=== PATIENT | female | born 1970 ===

== ENCOUNTER 2018-01-27 21:32 | Emergency (ER) | payer OTHER ==
[2018-01-27] MEDS ORDERED: Sodium Chloride 0.9% 1,000 ML IV STA (22:12)
[2018-01-27 22:55] LABS: PROTHROMBIN TIME 11.4 Seconds (9.8-13.1)
[2018-01-27 22:57] LABS: PARTIAL THROMBOPLASTIN TIME 32.1 Seconds (25.6-37.1)
[2018-01-27 23:00] LABS: BASO % 0.7 % (0.0-2.0); EOS # 0.1 K/uL (0.0-0.7); EOS % 1.6 % (0.0-4.0); HEMOGLOBIN 12.8 g/dL (12.0-16.0); LYMPH # 1.5 K/uL (1.0-4.3); LYMPH % 22.3 % (20.0-40.0); MEAN CELL VOLUME 93.5 fl (81.0-99.0); MEAN CORPUSCULAR HGB CONC 34.2 g/dL (33.0-37.0); MEAN PLATELET VOLUME 8.3 fl (7.2-11.7); MONO # 0.5 K/uL (0.0-0.8); MONO % 7.9 % (0.0-10.0); NEUT # 4.6 K/uL (1.8-7.0); NEUT % 67.5 % (50.0-75.0); RED CELL DISTRIBUTION WIDTH 12.6 % (11.5-14.5); WHITE BLOOD COUNT 6.8 K/uL (4.8-10.8)
[2018-01-27 23:03] LABS: ALB/GLOB RATIO 1.3 (1.0-2.1); ALBUMIN 4.1 g/dL (3.5-5.0); ALT/SGPT 22 U/L (9-52); AST/SGOT 26 U/L (14-36); BLOOD UREA NITROGEN 15 mg/dl (7-17); CALCIUM 8.8 mg/dL (8.4-10.2); GFR NON-AFRICAN AMERICAN > 60
--- NOTE | 2018-01-27 23:47 | ED PDOC ---
HPI: Headache Time Seen by Provider: 01/27/18 21:52 Chief Complaint (Nursing): Headache Chief Complaint (Provider): Headache History Per: Patient History/Exam Limitations: no limitations Onset/Duration Of Symptoms: Days (x2), Gradual, Worse Since Current Symptoms Are (Timing): Still Present Associated Symptoms: Photophobia, Nausea. denies: Blurred Vision, Vomiting Additional Complaint(s): 47 y/o female with a PMHx of hypercholesterolemia presents to the ED for evaluation of a diffuse headache, gradual onset 2 days ago. Patient states head ache has been more severe yesterday and today. Patient reports of taking Tylenol with minimal relief. Patient states headache is associated with photophobia and nausea. Denies vomiting, focal weakness, blurry vision, double vision and difficulty with speech or gait. In addition, patient reports that approximately two weeks age, she sustained a head injury while at work after having stood up hitting her head on a piece of furniture overhead. At that time, patient reports of swelling and a wound to the left forehead that has since resolved. Patient states at that point, she never had a headache. Additionally, patient reports she is still undergoing a cardiac work-up and no medications have been initiated yet. PMD: Dr. Navas in [place] Past Medical History Reviewed: Historical Data, Nursing Documentation, Vital Signs Vital Signs: Last Vital Signs Temp 98.2 F 01/27/18 21:42 Pulse 61 01/27/18 21:42 Resp 16 01/27/18 21:42 BP 110/71 01/27/18 21:42 Pulse Ox 99 01/27/18 21:42 - Medical History PMH: Hypercholesterolemia - Surgical History Surgical History: - Family History Family History: States: Unknown Family Hx - Social History Current smoker - smoking cessation education provided: No Ex-Smoker (has not smoked in the last 12 months): Yes (x3 weeks ) Alcohol: None - Home Medications Home Medications: Ambulatory Orders Medication Instructions Recorded Clindamycin [Clindamycin HCl] 450 mg PO TID 10 Days cap 10/18/15 Ibuprofen [Motrin] 600 mg PO TID 7 Days tab 10/18/15 Acetaminophen/Butalbital/Caf 1 tab PO TID PRN #20 tab 01/27/18 [Fioricet] Metoclopramide [Reglan] 1 tab PO TID PRN #20 tab 01/27/18 RX: Ibuprofen [Motrin Tab] 600 mg PO Q8 PRN #30 tab 01/27/18 - Allergies Allergies/Adverse Reactions: Allergies Allergy/AdvReac Type Severity Reaction Status Date / Time Penicillins Allergy RASH Verified 01/27/18 21:42 amoxicillin Allergy RASH Uncoded 10/18/15 08:33 Review of Systems ROS Statement: Except As Marked, All Systems Reviewed And Found Negative Eyes: Negative for: Vision Change (Blurry vision or double vision) Gastrointestinal: Positive for: Nausea. Negative for: Vomiting Neurological: Positive for: Headache, Other (Photophobia). Negative for: Weakness, Incoordination, Change in Speech Physical Exam - Reviewed Nursing Documentation Reviewed: Yes Vital Signs Reviewed: Yes - Physical Exam Appears: Positive for: Uncomfortable, In Acute Distress Head Exam: Positive for: ATRAUMATIC, NORMOCEPHALIC Skin: Positive for: Warm, Dry Eye Exam: Positive for: EOMI, PERRL, Conjunctival injection ENT: Negative for: Pharyngeal Erythema, Tonsillar Exudate Neck: Positive for: Painless ROM, Supple Cardiovascular/Chest: Positive for: Regular Rate, Rhythm, Chest Non Tender. Negative for: Murmur Respiratory: Positive for: Normal Breath Sounds. Negative for: Wheezing Gastrointestinal/Abdominal: Positive for: Soft. Negative for: Tenderness Back: Positive for: Normal Inspection. Negative for: Muscle Spasm Extremity: Positive for: Normal ROM. Negative for: Deformity Lymphatic: Negative for: Adenopathy Neurologic/Psych: Positive for: Alert, it risk advisor II-XII (intact), Oriented (x3), Cerebellar Tests (normal), Gait (normal). Negative for: Motor/Sensory Deficits - Laboratory Results Result Diagrams: 01/27/18 22:19 01/27/18 22:19 - ECG O2 Sat by Pulse Oximetry: 99 (RA) Pulse Ox Interpretation: Normal Medical Decision Making Medical Decision Making: Time: 2218 Impression: Headache Differentials include but not limited to tension headache, post-concussive syndrome, migraine, cerebral mass and stress Plan: -- Type and Screen -- CT Head w/o Contrast -- CMP -- Magnesium -- Phosphorous -- Thyroid Stimulating Hormone -- ED Urine -- ED Urine Dipstick -- CBC with Differentials -- PTT -- Prothrombin Time [COAG] -- Sodium Chloride 0.9% IV 999 mls/hr -- Reglan 10 mg IVP -- Toradol 15 mg IVP -- IV Insertion Time: [address] RESULTS FINDINGS: No acute intraparenchmal hemorrhage. No mass lesion. No CT evidence for acute territorial infarct. No midline shift or extra-axial collections. VENTRICULES: No hydrocephalus. ORBITS: The orbits are unremarkable. SINUSES AND MASTOIDS: The paranasal sinuses and mastoid air cells are clear. BONES: No fracture. IMPRESSION: No acute intracranial abnormality Electronically signed on Jan 27, 2018 11:14:14 PM EDT by: Samuel Sanford M.D., SHAHBAZ Certified by [facility] [facility] Trained MRI and CT Specialist Time: 2330 -- On re-evaluation, patient reports of feeling better. Patient is eager to be discharged, labs are still pending. 2350 Labs with no clinically significant abnormalities. Pt reports improvement. Stable for dc with followup PMD. Scribe Attestation: Documented by Tory Cardona, acting as a scribe for Ana Mohan MD. Provider Scribe Attestation: All medical record entries made by the Scribe were at my direction and personally dictated by me. I have reviewed the chart and agree that the record accurately reflects my personal performance of the history, physical exam, me dical decision making, and the department course for this patient. I have also personally directed, reviewed, and agree with the discharge instructions and disposition. Disposition - Clinical Impression Clinical Impression: Headache - Disposition Disposition Time: 23:45 Condition: IMPROVED Additional Instructions: PLEASE FOLLOW UP WITH YOUR PRIMARY CARE DOCTOR MONDAY FOR FURTHER EVALUATION Prescriptions: Acetaminophen/Butalbital/Caf [Fioricet] 1 tab PO TID PRN #20 tab PRN Reason: severe headache only RX: Ibuprofen [Motrin Tab] 600 mg PO Q8 PRN #30 tab PRN Reason: Headache Metoclopramide [Reglan] 1 tab PO TID PRN #20 tab PRN Reason: Nausea/Vomiting Instructions: Headache, Adult (DC) Forms: [facility] ED School/Work Excuse
[2018-01-28 00:12] VITALS: BP 98/56; PULSE 65; RESP 18; TEMP 98.6
--- NOTE | 2018-01-28 10:13 | CT ---
Date of service: 01/27/2018 PROCEDURE: CT HEAD WITHOUT CONTRAST. HISTORY: headache COMPARISON: None available. TECHNIQUE: Axial computed tomography images were obtained through the head/brain without intravenous contrast. Radiation dose: Total exam DLP = 884 mGy-cm. This CT exam was performed using one or more of the following dose reduction techniques: Automated exposure control, adjustment of the mA and/or kV according to patient size, and/or use of iterative reconstruction technique. FINDINGS: HEMORRHAGE: No intracranial hemorrhage. BRAIN: No mass effect or edema. No atrophy or chronic microvascular ischemic changes. VENTRICLES: Unremarkable. No hydrocephalus. CALVARIUM: Unremarkable. PARANASAL SINUSES: Unremarkable as visualized. No significant inflammatory changes. MASTOID AIR CELLS: Unremarkable as visualized. No inflammatory changes. OTHER FINDINGS: None. IMPRESSION: Normal CT of the Head. This agrees with preliminary report provided by the on-call radiologist.
[2018-01-28 18:35] VITALS: O2SAT 99
== END 2018-01-28 00:12 | disposition home or self-care (01) ==
LOC: H.ER 21:32
DX: R51 Headache (principal); E78.00 Pure hypercholesterolemia, unspecified; Z88.0 Allergy status to penicillin
CPT/HCPCS: 70450; 80053; 81025; 83735; 84100; 84443; 85025; 85610; 85730; 86850; 86900; 96361; 96374; 96375; 99285; J1885; J2765; J7030